=== PATIENT | male | born 1995 | race Caucasian/White ===

== ENCOUNTER 2018-05-25 20:53 | Emergency (ER) | payer BC ==
[~2018-05-25 20:53] MED LIST: ACEC5L PO
--- NOTE | 2018-05-25 21:23 | ER Report ---
History and Physical Time Seen By MD: 21:03 Hx. of Stated Complaint: 715 pm pt bucked off a horse, fell on r side and limited rom in shoulder, feels like he broke his clavicle HPI/ROS CHIEF COMPLAINT: right collar bone injury HISTORY OF PRESENT ILLNESS: This is a 23 year old male. He was bucked off a ho rse tonight. fell to the right side. Now with pain over right clavicle. H/o clavicle fracture in the past, feels similar. Normal sensation in the arm. Normal motor function, but with pain. No pain in the neck, back, head. No head injury. No loss of consciousness. No chest pain or shortness of breath. Allergies: Uncoded Allergies: NONE (Allergy, Mild, 10/30/08) Home Meds Active Scripts Hydrocodone Bit/Acetaminophen (HYDROCODON-ACETAMINOPHEN 5-325) 1 Each Tablet, 1 EACH PO Q4H PRN for PAIN, #12 TAB 0 Refills Prov:LUIZ PRADHAN MD 05/25/18 Discontinued Reported Medications Acetaminophen/Codeine (Tylenol Codeine Elixir) 5 Ml Elix, 5 ML PO Q4H PRN, #1 0 Refills 10/30/08 [None] No Conflict Check, 0 Refills 10/30/08 Reviewed Nurses Notes: Yes Hx Alcohol Use: Yes (occ) Constitutional Vital Sign - Last 24 Hours 05/25/18 05/25/18 05/25/18 05/25/18 20:53 20:58 20:58 21:00 Temp 97.5 Pulse ??? 94 Resp 16 B/P (MAP) 139/90 (106) 140/103 140/103 (115) Pulse Ox 93 O2 Delivery Room Air 05/25/18 05/25/18 05/25/18 05/25/18 21:08 21:23 21:30 21:38 Pulse 90 82 82 Resp 17 16 B/P (MAP) 166/81 (109) Pulse Ox 93 95 95 05/25/18 05/25/18 05/25/18 05/25/18 21:53 21:58 22:00 22:13 Pulse 81 83 80 Resp 17 16 19 B/P (MAP) ???/??? (1665) Pulse Ox 94 94 94 05/25/18 22:28 Pulse 86 Resp 8 Pulse Ox 96 Physical Exam General: Alert, mild distress. Musculoskeletal: Holding right arm against chest. Moving the shoulder causes pain. Pain with palpation and deformity over mid clavicle. No pain in humerus or the rest of the arm. No pain in c-spine or t-spine or scapula. Neuro: Alert and oriented x4. Normal sensation in hand and arm. Skin: No skin breakdown. Cardiovascular: Normal cap refill and radial pulses. Medical Decision Making EKG/Imaging Imaging CLAVICLE RIGHT HISTORY: Bucked off horse, clavicle pain. COMPARISON: None. TECHNIQUE: AP and AP axial views of the right clavicle. FINDINGS: There is a mid right clavicle fracture, nondisplaced. No acromioclavicular joint separation. Visible thorax is normal. IMPRESSION: 1. Nondisplaced mid right clavicle fracture. Report Dictated By: Mayela Hsu at 05/25/2018 10:43 PM ED Course/Re-evaluation ED Course Clavicle fracture noted on x-ray. Lortab and Ibuprofen for pain. Decision to Disposition Date: May 25, 2018 Decision to Disposition Time: 22:25 Depart Departure Latest Vital Signs Vital Signs Date Time Temp Pulse Resp B/P (MAP) Pulse Ox O2 Delivery O2 Flow Rate FiO2 05/25/18 22:28 86 8 96 05/25/18 22:00 ???/??? (1665) 05/25/18 20:58 97.5 Room Air Impression: Primary Impression: Clavicle fracture, shaft Condition: Improved Disposition: HOME OR SELF-CARE Referrals: MONCHO LI MD New Scripts Hydrocodone Bit/Acetaminophen (HYDROCODON-ACETAMINOPHEN 5-325) 1 Each Tablet 1 EACH PO Q4H PRN for PAIN, #12 TAB 0 Refills Prov: LUIZ PRADHAN MD 05/25/18 Patient Instructions: Clavicle Fracture (ED) Additional Instructions: Ibuprofen 200mg over the counter tablets, take 4 tablets three times a day with food. Lortab 5/325, one every 4 hours as needed for pain. Apply ice 20 minutes every 1-2 hours while awake. Use the sling until instructed by orthopedic surgery. Call [facility] in the morning to arrange a follow-up visit with them. Problem Qualifiers Primary Impression: Clavicle fracture, shaft Encounter type: initial encounter Fracture type: closed Fracture alignment: nondisplaced Laterality: right Qualified Codes: S42.024A - Nondisplaced fracture of shaft of right clavicle, initial encounter for closed fracture LUIZ PRADHAN MD May 25, 2018 21:23
[2018-05-25] MEDS ORDERED: ACET/HYDROC 5/325MG TH ER ONLY 2 TAB/BOTTLE PO ONE (22:20)
[2018-05-25] MEDS ORDERED: APAP/HYDROCODONE 325/5 TAB PO ONE (22:20)
[2018-05-25] MEDS ORDERED: IBUPROFEN 800 MG TAB PO ONE (22:20)
[2018-05-25] MEDS ORDERED: LOR5/325 PO (22:26)
--- NOTE | 2018-05-25 22:48 | RADIOLOGY IMAGING REPORT ---
FACILITY: [facility] PATIENT NAME: Jarret Washington : 1995 MR: [id number] V: [id number] EXAM DATE: ORDERING PHYSICIAN: LUIZ PRADHAN TECHNOLOGIST: [place] [facility] [place]ret [place] : 1995 Visit/Account:[id number] Date of Sevice: 05/25/2018 CLAVICLE RIGHT HISTORY: Bucked off horse, clavicle pain. COMPARISON: None. TECHNIQUE: AP and AP axial views of the right clavicle. FINDINGS: There is a mid right clavicle fracture, nondisplaced. No acromioclavicular joint separation . Visible thorax is normal. IMPRESSION: 1. Nondisplaced mid right clavicle fracture. Report Dictated By: Mayela Hsu at 05/25/2018 10:43 PM Report E-Signed By: Mayela Hsu at 05/25/2018 10:44 PM WSN:[id number]
== END 2018-05-25 22:37 | disposition home or self-care (01) ==
LOC: ER 21:49
DX: S42.024A Nondisplaced fracture of shaft of right clavicle, initial encounter for closed fracture (principal)
CPT/HCPCS: 73000; 99283; A4565